=== PATIENT | female | born 1990 ===

== ENCOUNTER 2020-05-21 09:13 | Emergency (ER) | payer OTHER ==
[~2020-05-21] VITALS: Ht 157.5 cm; Wt 61.4 kg
[2020-05-21] MEDS ORDERED: CYCLOBENZAPRINE HCL 10 MG TABLET PO ONE (10:45)
[2020-05-21] MEDS ORDERED: KETOROLAC TROMETHAMINE 60 MG/2 ML VIAL IM ONE (10:45)
[2020-05-21 12:17] VITALS: BP 117/74
== END 2020-05-21 12:22 | disposition home or self-care (01) ==
LOC: EMS 09:16
DX: M54.6 Pain in thoracic spine (principal); V49.9XXA Car occupant (driver) (passenger) injured in unspecified traffic accident, initial encounter; Y93.89 Activity, other specified; Y92.89 Other specified places as the place of occurrence of the external cause; Y99.8 Other external cause status
CPT/HCPCS: 96372; 99283; J1885